=== PATIENT | male | born 1960 | race Caucasian/White ===

== ENCOUNTER 2022-10-21 10:55 | Emergency (ER) | payer MEDICAID, SELFPAY ==
[2022-10-21 10:56] VITALS: BP 129/89; PULSE 85; RESP 16; TEMP 36.2; O2SAT 100; BMI 35.5
--- NOTE | 2022-10-21 11:15 | EX.ED.DYSGE1 ---
HPI History of Present Illness Chief Complaint: Abd Pain Narrative Narrative: 61-year-old male here for abdominal pain for several days and nausea. Notes history of bowel surgery, bowel obstruction. Notes nausea but no vomiting. No chest pain or shortness of breath endorsed. Last bowel movement was 2 days ago. Denies any urinary complaints. Denies any fever. [facility] Medical History (Updated 10/21/22 @ 13:[address] Maximino Wiley, DO) Heart attack History of open sigmoidectomy Allergy/AdvReac Type Severity Reaction Status Date / Time ketorolac [From Toradol] Allergy Other Verified 10/21/22 11:03 meperidine [From Demerol] Allergy Other Verified 10/21/22 11:03 tramadol Allergy Other Verified 10/21/22 11:03 Surgical History (Updated 10/21/22 @ 11:04 by Lucinda Norris) Hx of appendectomy Hx of cholecystectomy Social History Smoking Status: Former smoker ROS ROS ED ROS Narrative Constitutional: Denies fever HEENT: Denies sore throat Neck: Denies neck pain Cardiovascular: Denies chest pain, syncope Respiratory: Denies shortness of breath GI: Endorses abdominal pain, nausea : Denies changes in urinary habits Musculoskeletal: Denies muscle or joint pain Neurologic: Denies numbness weakness or loss of sensation Skin denies rash EXAM Physical Exam Narrative Exam Narrative: Nursing triage notes reviewed, Vital signs reviewed Constitutional: please see mdm HENT: MMM Eyes: Pupils equal round and reactive to light, Extraocular muscles intact Neck: No stridor, no JVD, full neck ROM Lungs: Clear to auscultation, No wheezing or rales. No increased work of breathing, no conversational dyspnea, no accessory muscle use, no nasal flaring. No respiratory distress noted Heart: Regular rate and rhythm, No murmurs, No rubs and No gallops, 2+ distal pulses (radial, femoral, posterior tibial) in all extremities Abdomen: Soft, no rigidity, rebound or guarding, no obvious peritoneal signs, no palpable pulsatile abdominal masses, no auscultated abdominal bruit : No CVAT Extremities: No edema Neuro: No focal neurological deficits, cranial nerves II through XII intact, 5/5 strength in all extremities. Intact sensation to light touch in all extremities, 2+ reflexes bilateral patella dens. Normal gait. No ataxia. Skin: No rash or lesions noted Const Vital Signs: 10/21/22 10:56 10/21/22 11:19 10/21/22 13:08 Temperature 97.2 F L Temperature Source Temporal Pulse Rate 85 84 74 Respiratory Rate 16 18 17 Blood Pressure 129/89 H 129/89 H 135/81 H Blood Pressure Mean 102 102 99 Pulse Ox 100 98 96 Oxygen Delivery Method Room Air Room Air Room Air MDM MDM MDM Narrative Medical decision making narrative: Chief Complaint: Abdominal pain nausea External records reviewed: No recent adVance imaging of the abdomen or pelvis I considered the following differential diagnosis: AAA, small bowel obstruction, abdominal perforation, appendicitis, pancreatitis, hepatobiliary pathology (acute cholecystitis), mesenteric ischemia, abnormalities such as ovarian pathology, PID. I obtained a CT scan of the abdomen pelvis, labs including lipase. I gave 1 L normal saline, Zofran and morphine for symptomatic control. Labs images remarkable for no evidence of acute obstruction or intra-abdominal process. There are no signs of pancreatitis, systemic inflammation, severe dehydration, electrolyte imbalance, acute kidney injury, hepatobiliary obstruction. There is no clear etiology patient complaint however he had a benign abdominal exam his vitals are stable he is appropriate for discharge home. Factors affecting care: None Social determinants of health: Former smoker History obtained from others: None Shared decision making: I will have a discussion with the patient and or visitors regarding risk/benefits of further testing or admission. They will be made aware of of the risk/benefits inherent in this decision they will be given the opportunity to voice understanding. Consults: none Lab Data Attestation: I reviewed the patient's lab results. Lab results narrative: CBC without leukocytosis, severe anemia, no thrombocytopenia. BMP without evidence of significant electrolyte abnormalities, no anion gap, no acute kidney injury. LFTs show no evidence of hepatobiliary pathology. Lactate is wnl indicating no end-organ hypoperfusion and/or hypoxia. Lipase is wnl indicating no pancreatic inflammation. Labs: Laboratory Results - last 24 hr 10/21/22 10/21/22 10/21/22 11:54 11:54 11:54 WBC 6.7 RBC 5.49 Hgb 16.8 H Hct 50.1 MCV 91.3 MCH 30.6 MCHC 33.5 RDW Std Deviation 46.4 H RDW Coeff of Jessica 13.8 Plt Count 201 MPV 10.5 Immature Gran % (Auto) 0.300 Neut % (Auto) 66.8 Lymph % (Auto) 19.5 Finney % (Auto) 8.2 Eos % (Auto) 4.5 Baso % (Auto) 0.7 Absolute Neuts (auto) 4.5 Absolute Lymphs (auto) 1.31 Nucleated RBC % 0 Sodium 139 Potassium 4.4 Chloride 109 H Carbon Dioxide 28.0 Anion Gap 2 L BUN 22 H Creatinine 1.15 Estim Creat Clear Calc 73.10 Est GFR (MDRD) Af Amer 83 Est GFR (MDRD) Non-Af 68 BUN/Creatinine Ratio 19.1 Glucose 96 Lactic Acid 1.8 Calcium 8.9 Total Bilirubin 0.30 Direct Bilirubin 0.10 AST 15 ALT 39 Alkaline Phosphatase 86 Total Protein 6.7 Albumin 3.6 Globulin 3.1 Lipase 71 L Radiography Diagnostic Testing: Clinical Impression(s) from Imaging Studies Abdomen/Pelvis CT 10/21/22 11:49 IMPRESSION: No suspicious solid organ abnormality, mild fatty infiltration of the liver. Small bowel ileus Retained stool noted in the colon No free intraperitoneal fluid, air, or suspicious adenopathy Electronically Signed: Dayton Jerry MD at 13:15 EDT Reading Location ID and State: [address] [place] [address] , Service support , Discharge Plan Triage Chief Complaint: Abd Pain ED Provider: Maximino Wiley Dx/Rx/DC Orders Clinical Impression: Ileus Instructions: Ileus Primary Care Provider: Lencho Booth Referrals: Lencho Booth MD [Primary Care Provider] - Activity Restrictions/Additional Instructions: Please take Zofran as needed for nausea control. Please return if he cannot tolerate medicine or food by mouth. Disposition Disposition: Home, Self Care
[2022-10-21 11:19] VITALS: BP 129/89; PULSE 84; RESP 18; O2SAT 98
--- NOTE | 2022-10-21 11:49 | CT_ITS ---
STUDY: CT ABDOMEN AND PELVIS WITH CONTRAST REASON FOR EXAM: Male, 61 years old. Abdominal pain, nausea RADIATION DOSAGE (If Supplied By Facility): CTDIvol = ( 16.63 ) mGy, DLP = ( 1275.25 ) mGycm TECHNIQUE: Transaxial images were obtained from the dome of the diaphragm to the symphysis pubis without oral contrast. IV 100mL Isovue-300 was administered. Sagittal and coronal images were reconstructed. Individualized dose optimization techniques were used for this CT. COMPARISON: None. FINDINGS: The visualized lung bases are unremarkable. The visualized portions of the heart are within normal limits. Mild fatty infiltration of liver noted. There are surgical clips in the gallbladder fossa consistent with a prior cholecystectomy. Normal spleen. Normal pancreas. Normal bilateral adrenal glands. Normal right kidney. Normal left kidney. Normal visualized stomach. Nondistended fluid-filled small bowel loops are noted consistent with ileus. Postsurgical changes noted to a bowel loop in the mid lower abdomen without anastomotic leak. Retained stool noted in the colon. There is non-visualization of the appendix. Normal abdominal aorta. Normal inferior vena cava. Normal retroperitoneum. Normal urinary bladder. Normal abdominal wall. There are diffuse degenerative changes of the visualized lumbar spine, and pelvis. CT/Abdomen/Pelvis W IV Cont ONLY IMPRESSION: No suspicious solid organ abnormality, mild fatty infiltration of the liver. Small bowel ileus Retained stool noted in the colon No free intraperitoneal fluid, air, or suspicious adenopathy Electronically Signed: Dayton Jerry MD at 13:15 EDT ,
[2022-10-21 12:04] LABS: Absolute Lymphocyte Count 1.31 X10^3/uL (0.83-4.51); Absolute Neutrophil Count 4.5 X10^3/uL (2.0-7.7); Basophil# 0.05 X10^3/uL; Basophil% 0.7 % (0-1); Eosinophils% 4.5 % (0-5); Hematocrit 50.1 % (40-54); Hemoglobin 16.8 g/dL (13.0-16.5); Lymphocyte # 1.31 X10^3/ul (0.83-4.51); Lymphocyte % 19.5 % (19-41); Mean Corp Hgb Conc 33.5 g/dL (32-36); Mean Corpuscular Hgb 30.6 pg (27.0-32.0); Mean Corpuscular Volume 91.3 fL (80-94); Mean Platelet Vol. 10.5 fl (6.2-12.0); Monocyte# 0.55 X10^3/uL; Monocyte% 8.2 % (0-10); NRBC Flagged by Analyzer 0 % (0-5); Neutrophil # 4.48 X10^3/uL (2.7-7.7); Neutrophil % 66.8 % (47-70); Platelet Count 201 K/mm3 (150-450); RBC Distribution Width CV 13.8 % (11.6-14.6); RBC Distribution Width SD 46.4 fl (35.1-43.9); Red Blood Count 5.49 M/mm3 (4.6-6.2); White Blood Count 6.7 K/mm3 (4.4-11.0)
[2022-10-21] MEDS: 0.9% Normal Saline 1,000 ML 1000 ML IV (12:12)
[2022-10-21] MEDS: Ondansetron 4 MG/2 ML Vial IV (12:13)
[2022-10-21] MEDS: Morphine 4 MG/ML Syringe IV ×2 (12:13→14:25)
[2022-10-21 12:25] LABS: AST(SGOT) 15 U/L (15-37); Alanine Aminotransfer ALT/SGPT 39 U/L (16-61); Albumin, Serum 3.6 g/dL (3.2-5.0); Alkaline Phosphatase 86 U/L (45-117); Anion Gap 2 (5-15); BUN 22 mg/dL (7-18); BUN/Creat Ratio 19.1 RATIO (10-20); Calcium,Total 8.9 mg/dL (8.5-10.1); Chloride 109 mmol/L (98-107); Creatinine, Serum 1.15 mg/dL (0.70-1.30); EST Glomerular Filtration Rate 68 mL/min (>60); Est Glom Filt Rate - Afr Amer 83 mL/min (>60); Globulin 3.1 g/dL (2.2-4.2); Glucose 96 mg/dL (74-106); Lipase 71 U/L (73-393); Potassium 4.4 mmol/L (3.5-5.1); Protein, Total 6.7 g/dL (6.4-8.2); Sodium Level 139 mmol/L (136-145)
[2022-10-21 12:31] LABS: Lactic Acid 1.8 mmol/L (0.4-1.9)
[2022-10-21 13:08] VITALS: BP 135/81; PULSE 74; RESP 17; O2SAT 96
[2022-10-21 14:16] VITALS: BP 137/80; PULSE 77; RESP 18; O2SAT 99
== END 2022-10-21 14:32 | disposition home or self-care (01) ==
PROVIDERS: Emergency Provider Emergency Medicine; PCP Family Medicine; Visit Provider Emergency Medicine
DX: K56.7 Ileus, unspecified (principal); Z87.891 Personal history of nicotine dependence; R11.0 Nausea; I25.2 Old myocardial infarction; Z90.49 Acquired absence of other specified parts of digestive tract
CPT/HCPCS: 74177; 80048; 80076; 83605; 83690; 85025; 96361; 96374; 96375; 96376; 99282; J7030; Q9967; A4216; J2405